=== PATIENT | male | born 1945 | race Caucasian/White ===

== ENCOUNTER 2022-08-12 10:11 | Emergency (ER) | payer MEDICARE, OTHER ==
[~2022-08-12] VITALS: Ht 165.1 cm; Wt 52.3 kg
[2022-08-12] MEDS ORDERED: AMLO-257 PO (10:37)
[2022-08-12] MEDS ORDERED: LEVO25TA9 PO (10:37)
[2022-08-12] MEDS ORDERED: ATOR10TA PO (10:37)
[2022-08-12 14:25] VITALS: BP 138/66
== END 2022-08-12 16:07 | disposition home or self-care (01) ==
LOC: EMS 10:15
DX: S46.001A Unspecified injury of muscle(s) and tendon(s) of the rotator cuff of right shoulder, initial encounter (principal); M54.2 Cervicalgia; M79.602 Pain in left arm; H54.7 Unspecified visual loss; I10 Essential (primary) hypertension; E03.9 Hypothyroidism, unspecified; F17.210 Nicotine dependence, cigarettes, uncomplicated; Z88.8 Allergy status to other drugs, medicaments and biological substances; W01.0XXA Fall on same level from slipping, tripping and stumbling without subsequent striking against object, initial encounter; Y93.89 Activity, other specified; Y92.89 Other specified places as the place of occurrence of the external cause; Y99.8 Other external cause status
CPT/HCPCS: 70450; 70486; 72125; 99284